=== PATIENT | male | born 1990 | race Hispanic/Latino ===

== ENCOUNTER 2025-08-04 19:22 | Emergency (ER) | payer OTHER, SELFPAY ==
--- NOTE | ~2025-08-04 | XR_ITS ---
XR abdomen/kub 1V INDICATION: L sided ABD pain for 1 month REFERENCE: NONE FINDINGS: A supine view of the abdomen is submitted.Moderate stool throughout the colon consistent with constipation. No free air is identified. Osseous structures are intact. IMPRESSION: Constipation. Reviewed, dictated and finalized at location S. IMPRESSION: Constipation.
[2025-08-04 19:32] VITALS: BP 141/80; PULSE 79; RESP 16; TEMP 36.6; O2SAT 99
--- NOTE | 2025-08-04 19:33 | ED_ITS ---
HPI - Abdominal Pain General Chief Complaint: Abdominal Pain Stated Complaint: ABD PAIN Time Seen by Provider: 08/04/25 19:33 Source: patient Mode of arrival: ambulatory Limitations: no limitations History of Present Illness HPI narrative: 35 yo M presents with c/o L sided ABD pain for approx. 1 month. Describes as intermittent discomfort to upper and lower ABD. Pain has been worse this week. Feels bloated today. Pain worse when leaning back. feels like something is in there like a mass. Denies N/V. Normal BMs. No change to eating habits. All systems reviewed and negative except as noted above. Related Data Home Medications ?Medication ?Instructions ?Recorded ?Confirmed ?Last Taken ?Type No Home Medications 08/04/25 08/04/25 U nknown History Allergies Allergy/AdvReac Type Severity Reaction Status Date / Time Penicillins Allergy Intermediate Hives Verified 08/04/25 19:53 PMFSH Comments At time of signature, agree with nursing past medical, surgical, social and family history. There is no relevant family history pertinent to the presenting complaint. Exam Narrative: GENERAL: This is a well-nourished, well-developed patient, in no apparent distress. HEAD: normocephalic, atraumatic. EYES: PERRL. Sclera clear/white. Vision is grossly intact. EARS: External ears normal NOSE: External nose normal NECK: Neck supple, non-tender without lymphadenopathy, masses or thyromegaly. CARDIOVASCULAR: Regular rate and rhythm without murmurs, gallops, or rubs. RESPIRATORY: Clear to auscultation. Breath sounds equal bilaterally. No wheezes, rales, or rhonchi. GASTROINTESTINAL: Abdomen soft, generalized left-sided abdominal pain,, nondistended. Bowel sounds are active. No hepato-splenomegaly, or palpable masses. No guarding. SKIN: warm, Dry, intact with no suspicious lesions or rash, good texture and turgor. NEURO: awake, alert, and oriented to person, place and time. There were no obvious focal neurologic abnormalities. EXTREMITIES: No joint tenderness, effusion, or edema noted. Course Course Level of Care: Express Care Visit Vital Signs Vital signs: Vital Signs Temperature 36.6 C 08/04/25 19:32 Pulse Rate 79 08/04/25 19:32 Respiratory Rate 16 08/04/25 19:32 Blood Pressure 141/80 H 08/04/25 19:32 Pulse Oximetry 99 08/04/25 19:32 Temperature 36.6 C 08/04/25 19:32 Pulse Rate 79 08/04/25 19:32 Respiratory Rate 16 08/04/25 19:32 Blood Pressure 141/80 H 08/04/25 19:32 Pulse Oximetry 99 08/04/25 19:32 reviewed MDM - Abdominal Pain MDM Narrative Medical decision making narrative: x-ray of abdomen shows moderate constipation. Discussed results with patient. Recommend MiraLax and Dulcolax. Referred to her primary care physician for further evaluation abdominal complaints. Imaging Data My impression: Agree with radiologist Radiologist's impression: ITS Impressions Abdomen X-Ray 08/04/25 19:52 IMPRESSION: Constipation. Discharge Plan Discharge Clinical Impression: Constipation Patient Disposition: Home Condition: Stable Instructions: Constipation (ED) Additional Instructions: The x-ray of your abdomen showed constipation. Purchase over the counter miralax and take 1 capful every 24 hours for 1 to 4 days. Mix as directed on packaging. Purchase over the counter Dulcolax and take as directed on packaging. Drink at least 64 ounces of water a day. Increase fiber in your diet. Get at least 30 minutes of exercise a day. Patient Language: Yi Prescriptions: No Action No Home Medications Follow-up/Referrals: PHYSICIAN,EARLY [employer]ER [Primary Care Provider, Internal Medicine] Time of Disposition: 20:02
== END 2025-08-04 20:06 | disposition home or self-care (01) ==
PROVIDERS: Emergency Provider Nurse Practitioner Family
DX: K59.00 Constipation, unspecified (principal)
CPT/HCPCS: 74018; 99213; G0463